=== PATIENT | female | born 1995 ===

== ENCOUNTER 2020-06-22 16:45 | Emergency (ER) | payer OTHER ==
[~2020-06-22] VITALS: Ht 152.4 cm; Wt 102.5 kg
[2020-06-22] MEDS ORDERED: PRENATABS RX T1 EACH PO (17:03)
== END 2020-06-22 21:13 | disposition home or self-care (01) ==
LOC: ER 16:45
DX: O26.891 Other specified pregnancy related conditions, first trimester (principal); R11.2 Nausea with vomiting, unspecified; Z3A.01 Less than 8 weeks gestation of pregnancy

== ENCOUNTER 2021-01-13 19:44 | Inpatient (IN) | payer OTHER ==
[~2021-01-13] VITALS: Ht 160 cm; Wt 107.5 kg
[~2021-01-13 19:44] MED LIST: PRENATABS RX T1 EACH PO
[2021-01-13] MEDS ORDERED: ADULT LOW DOSE81 M1 PO (20:53)
== END 2021-01-16 10:36 | disposition home or self-care (01) | DRG 833 ==
LOC: LDR 19:44 → OB/GYN 01-14 15:15
PROVIDERS: ADMIT Obstetrics & Gynecology; ATTEND Obstetrics & Gynecology
PROC: 4A1HXFZ Monitoring of Products of Conception, Cardiac Rhythm, External Approach (ICD-10-PCS; principal; 2021-01-13)
DX: O47.03 False labor before 37 completed weeks of gestation, third trimester (principal); Z3A.35 35 weeks gestation of pregnancy; Z20.822 Contact with and (suspected) exposure to COVID-19

== ENCOUNTER 2021-01-20 15:08 | Inpatient (IN) | payer OTHER ==
[~2021-01-20] VITALS: Ht 162.6 cm; Wt 107.5 kg
[~2021-01-20 15:08] MED LIST changes: +ADULT LOW DOSE81 M1 PO
[2021-01-20] MEDS ORDERED: CHILDREN'S ASPI81 MG PO (15:38)
[2021-01-20] MEDS ORDERED: PRENATAL TABLE1 EAC1 PO (15:38)
== END 2021-01-23 10:36 | disposition home or self-care (01) | DRG 786 ==
LOC: O/R 15:08 → LDR 15:08 → OB/GYN 15:08 → O/R 17:14 → OB/GYN 19:57
PROVIDERS: ADMIT Obstetrics & Gynecology; ATTEND Obstetrics & Gynecology
PROC: 4A1HXFZ Monitoring of Products of Conception, Cardiac Rhythm, External Approach (ICD-10-PCS; 2021-01-20)
PROC: 10D00Z1 Extraction of Products of Conception, Low, Open Approach (ICD-10-PCS; principal; 2021-01-20 19:00)
DX: O64.1XX0 Obstructed labor due to breech presentation, not applicable or unspecified (principal); O60.14X0 Preterm labor third trimester with preterm delivery third trimester, not applicable or unspecified; Z3A.36 36 weeks gestation of pregnancy; Z37.0 Single live birth; Z20.822 Contact with and (suspected) exposure to COVID-19

== ENCOUNTER 2021-02-02 09:57 | Inpatient (IN) | payer OTHER ==
[~2021-02-02] VITALS: Ht 160 cm; Wt 103.0 kg
[~2021-02-02 09:57] MED LIST changes: +CHILDREN'S ASPI81 MG PO; +PRENATAL TABLE1 EAC1 PO
--- NOTE | 2021-02-02 10:04 | NUR ---
PTE REFIERE COMPLICACION DE PEDERSEN CESARIA, DOLOR Y SECRECION EN LA CESARIA DESDE HOY. LA CESARIA FUE HACE 13 GU.
--- NOTE | 2021-02-02 12:02 | NUR ---
PTE EVALUADA POR LA DRA LEGGETT QUIEN ORDENA EL [place]. SE ORIENTA SOBRE EL MISMO, LO CUAL REFIERE ENTENDER, SE REALIZAN PRUEBAS DE LABORATORIO LOREN ORDEN MEDICA Y SIGUIENDO MEDIDAS ASEPTICAS Y ESTERILES. SE OFRECE CUIDADO LOCAL A HERIDA EN AREA PELVICA, PTE DRENANDO LIQUIDO PURULENTO Y FETIDO ABUNDANTE. SE COLOCA BENDAJE LIMPIO Y SECO. PENDIENTE A REALIZA CT NOTIFICADO A PERSONAL DE TURNO.
--- NOTE | 2021-02-02 15:13 | NUR ---
SE RECIBE PACIENTE EN KHADIJAH CON MEDIDAS DE SEGURIDAD. LUCE ALERTA CONSCIENTE Y ORIENTADA X3. PRESENTANDO BUEN PATRON RESPIRATORIO, GISELLE DE DOLOR AL MOMENTO. IV. PATENTE AREA GISELLE DE EDEMA Y ENROJECIENTO. PTE EN ESPERA DE SER [place]IST[place] EN CONSULTA POR EL DR. JUNIOR.
== END 2021-02-10 17:22 | disposition home or self-care (01) | DRG 776 ==
LOC: ER 09:57 → OB/GYN 16:40
PROVIDERS: ADMIT Obstetrics & Gynecology; ATTEND Obstetrics & Gynecology
PROC: BW211ZZ Computerized Tomography (CT Scan) of Abdomen and Pelvis using Low Osmolar Contrast (ICD-10-PCS; principal; 2021-02-02)
PROC: BW4GZZZ Ultrasonography of Pelvic Region (ICD-10-PCS; 2021-02-04)
DX: O86.01 Infection of obstetric surgical wound, superficial incisional site (principal); B96.89 Other specified bacterial agents as the cause of diseases classified elsewhere; O99.215 Obesity complicating the puerperium; E66.9 Obesity, unspecified; Z20.822 Contact with and (suspected) exposure to COVID-19